=== PATIENT | male | born 1940 | race Caucasian/White ===

== ENCOUNTER → 2021-04-09 | Outpatient (CLI) | payer MEDICARE ==
[~2021-04-09] MED LIST: NEURONTIN 300300 M1 PO; NORVASC 5 MG TAB5 MG PO; PRILOSEC 20 MG20 MG PO
--- NOTE | 2021-04-10 16:19 | CARDNUC ---
[place] [address] CARDIAC NUCLEAR IMAGING REPORT Name: FUNEZPRASANNA Chantale Room: [facility]#: [id number] Admission: 04/09/21 Attend Phys: Pamela Dey RN Discharge: Date of : 36 Date of Service: 04/10/21 1619 Report #: [id number] THIS REPORT FOR: cc: Benji Daniels MD, Anthony MD Liston, Michael J. MD [facility] ~ APPROVED REPORT Imaging Protocol: Rest Tc-99m/Stress Tc-99m 1 day Study performed: 04/09/2021 12:45:00 Indication: Chest pain, Dyspnea Patient Location: Out-Patient Stress Tech: STUART SANCHEZ Stress Nurse: Nel Hayward RN NM Tech:LINDSAY Dawn Wt: 178 lbs BSA: 1.87 m2 BMI: 0.00 Medical History Medical History: Former Smoker, HTN, Hyperlipidemia, Stroke/TIA, bradycardia Medications: amlodipine, atorvastatin, aggrenox, losartan Allergies: No known drug allergies Cardiac Risk Factors: Age, HTN, Hyperlipidemia, Tobacco History (Former) Exercise History: Sedentary Meds Held (48 hrs): aggrenox Resting Data Rest SPECT myocardial perfusion imaging was performed in supine position 30 minutes following the intravenous injection of 9.9 mCi of Tc-99m Sestamibi. Time of rest injection: 1305 Date: 04/09/2021 The images were gated to evaluate regional wall motion and calculate left ventricular ejection fraction. Administration Route: IV Pharmacologic Stress Pharmacologic stress test was performed by injecting Regadenoson 0.4 mg IV push over 10-15 seconds immediately followed by the intravenous injection of 34.0 mCi of Tc-99m Sestamibi. Time of stress injection: 1410 Date: 04/09/2021 [place] [address] CARDIAC NUCLEAR IMAGING REPORT Name: PRASANNA FUNEZ Room: [facility] [place]#: [id number] Admission: 04/09/21 Attend Phys: Pamela Dey RN Discharge: Date of : 36 Date of Service: 04/10/21 1619 Report #: [id number] Administration Route: IV Gated Stress SPECT was performed 40 minutes after stress injection. The images were gated to evaluate regional wall motion and calculate left ventricular ejection fraction. Prone imaging was performed. Stress Test Details Stress Test: Pharmacologic stress testing performed using 0.4 mg of regadenoson per 5 mL given IV over 10 seconds. HR Max Heart Rate (APMHR): 138 bpm Resting HR: 76 bpm Target HR (85% APMHR): 117 bpm Max HR Achieved: 92 bpm % of APMHR: 66 Recovery HR: 91 bpm BP Resting BP: 149/71 mmHg Max BP: 131/76 mmHg Recovery BP: 152/87 mmHg ECG Resting ECG: Sinus Rhythm Stress ECG: Sinus Rhythm ST Change: None Arrhythmia: VPC's Recovery ECG: Sinus Rhythm Recovery ST Change: None Recovery Arrhythmia: VPC's Clinical Reason for Termination: Completed protocol The patient tolerated Lexiscan infusion without significant cardiac symptoms. Nurse Comments pt on o2 cannot walk on treadmill Stress ECG Conclusion The baseline EKG shows sinus rhythm with PVCs in a pattern of bigeminy. EKGs obtained during and post Lexiscan infusion shows sinus rhythm with continued frequent premature ventricular contractions. There were no significant ST segment changes when compared to baseline. There were no other stress[place] [address] CARDIAC NUCLEAR IMAGING REPORT Name: PRASANNA FUNEZ Room: [facility]#: [id number] Admission: 04/09/21 Attend Phys: Pamela Dey RN Discharge: Date of : 36 Date of Service: 04/10/21 1619 Report #: [id number] Study Quality Study: Good Artifact: Mild Diaphragmatic artifact Study Data At rest, the left ventricular ejection fraction was 70%.. Post stress, the left ventricular ejection was 79%.. Perfusion Perfusion images obtained at rest and post Lexiscan stress in the supine position showed photopenia of the inferior wall that resolved with post stress prone imaging consistent with diaphragmatic attenuation artifact. No other significant fixed or reversible defects were noted. Wall Motion Normal left ventricular wall motion. Nuclear Conclusion ECG Findings: negative for ischemia Clinical Findings: negative for ischemia Nuclear Findings: negative for ischemia Exercise Capacity: not assessed Left Ventricular Function: normal Risk Study: low Perfusion images show no defect to suggest infarct or ischemia. Left ventricular systolic function appears normal on gated studies. This is a low risk study. <Conclusion> The baseline EKG shows sinus rhythm with PVCs in a pattern of bigeminy. EKGs obtained during and post Lexiscan infusion shows sinus rhythm with continued frequent premature ventricular contractions. There were no significant ST segment changes when compared to baseline. There were no other stress-induced arrhythmias. <ELECTRONICALLY SIGNED> By: Rosendo Al MD, FACC 04/10/21 1619 [id number] Rosendo Al MD, FACC /INF
== END ==
LOC: M.NUC 03-28 13:34 → M.CRD 04-02 13:00 → M.NUC 12:45
PROVIDERS: ATTEND Registered Nurse
DX: R06.00 Dyspnea, unspecified (principal)